=== PATIENT | female | born 1945 | race Caucasian/White ===

== ENCOUNTER 2019-06-28 13:48 | Inpatient (IN) | payer MEDICARE, OTHER ==
[~2019-06-28] VITALS: Ht 162.6 cm; Wt 81.1 kg
[2019-06-28] MEDS ORDERED: ZYRTEC10 MG PO (14:01)
[2019-06-28] MEDS ORDERED: LASIX80 MG PO (14:01)
[2019-06-28] MEDS ORDERED: CHLORTHALIDONE25 MG PO (14:01)
[2019-06-28] MEDS ORDERED: LANOXIN125 MCG PO (14:02)
[2019-06-28] MEDS ORDERED: ULTRAM50 MG PO (14:02)
[2019-06-28 14:48] LABS: BASOPHILS 0.1 % (0-2); EOSINOPHILS 0.1 % (0-7); HEMATOCRIT 47.5 % (36.0-48.0); HEMOGLOBIN 15.8 g/dL (12-16); IMMATURE GRANULOCYTES 0.3 % (0-5); LYMPHOCYTES 8.3 % (15-50); MCH 28.4 pg (26.0-34.0); MCHC 33.3 g/dL (31.0-37.0); MCV 85.3 fL (80.0-100.0); MEAN PLATELET VOLUME 10.7 fL (7.4-10.4); MONOCYTES 6.9 % (2-11); NEUTROPHILS 84.3 % (40-80); PLATELET COUNT 300 10x3/uL (130-400); RBC 5.57 10x6/uL (4.00-5.40); RDW 15.6 % (11.5-14.5); WBC 13.6 10x3/uL (4.8-10.8)
[2019-06-28 15:00] LABS: APTT 31.4 SECONDS (22.8-39.4); INR 1.12 (0.85-1.17); PROTIME 14.4 SECONDS (11.6-15.0)
[2019-06-28 15:24] LABS: ALBUMIN 3.2 g/dL (3.4-5.0); ALKALINE PHOSPHATASE 87 U/L (30-120); ALT (SGPT) 16 U/L (10-68); BILIRUBIN - TOTAL 0.51 mg/dL (0.2-1.3); CALC OSMOLALITY 298 mosm/kg (275-300); CALCIUM 9.5 mg/dL (8.5-10.1); CARBON DIOXIDE 26.9 mmol/L (21.0-32.0); CHLORIDE - SERUM 95 mmol/L (98-107); CKMB 2.1 U/L (0.0-3.6); CREATINE KINASE 131 UL (21-215); CREATININE - SERUM 4.1 mg/dL (0.6-1.3); GLUCOSE 119 mg/dL (74-106); PROTEIN - SERUM 7.6 g/dL (6.4-8.2); SODIUM 135 mmol/L (136-145); UREA NITROGEN 92 mg/dL (7-18); eGFR NON AFRICAN AMERICAN 11 mL/min (90-120)
[2019-06-28 15:38] LABS: TROPONIN-I 0.111 ng/mL (0.000-0.060)
[2019-06-28 15:39] LABS: POTASSIUM - SERUM 2.6 mmol/L (3.5-5.1)
[2019-06-28 15:49] LABS: BILIRUBIN NEGATIVE (NEGATIVE); GLUCOSE NEGATIVE (NEGATIVE); KETONE NEGATIVE (NEGATIVE); NITRITE NEGATIVE (NEGATIVE); UROBILINOGEN NORMAL (NORMAL)
[2019-06-28 15:52] LABS: BACTERIA MANY /hpf (NEGATIVE); EPITHELIAL CELLS 0-5 /hpf (0-5); RED CELLS - URINE 0-5 /hpf (0-5)
--- NOTE | 2019-06-28 16:37 | NUR ---
spoke with patient daughter and provided an updated her on pt status.
--- NOTE | 2019-06-28 17:52 | NUR ---
BLADDER SCAN 53CC.
[2019-06-28 18:07] VITALS: BP 150/76; BMI 28.4
--- NOTE | 2019-06-28 18:23 | NUR ---
B/P LYING 147/70, SITTING 108/54, UNABLE TO GET STANDING.
[2019-06-28 18:25] VITALS: BP 108/54; BP 147/70
--- NOTE | 2019-06-28 20:00 | NUR ---
LAYING- 151/87 HR 71, SITTING 110/75, HR 76 STANDING 107/82, HR 66
[2019-06-28 20:20] LABS: DIGOXIN 1.08 ng/mL (0.90-2.00); MAGNESIUM - SERUM 2.2 mg/dL (1.8-2.4)
[2019-06-28 21:12] VITALS: BP 151/87
[2019-06-28 23:58] VITALS: BP 158/94
[2019-06-29 05:17] VITALS: BP 140/80
[2019-06-29 06:04] LABS: BASOPHILS 0.2 % (0-2); EOSINOPHILS 1.8 % (0-7); HEMATOCRIT 46.6 % (36.0-48.0); HEMOGLOBIN 15.4 g/dL (12-16); IMMATURE GRANULOCYTES 0.4 % (0-5); LYMPHOCYTES 14.7 % (15-50); MCH 28.2 pg (26.0-34.0); MCV 85.3 fL (80.0-100.0); MEAN PLATELET VOLUME 10.6 fL (7.4-10.4); MONOCYTES 8.1 % (2-11); NEUTROPHILS 74.8 % (40-80); PLATELET COUNT 274 10x3/uL (130-400); RBC 5.46 10x6/uL (4.00-5.40); RDW 15.8 % (11.5-14.5)
[2019-06-29 06:20] LABS: WBC 8.9 10x3/uL (4.8-10.8)
[2019-06-29 07:04] LABS: ALBUMIN 3.1 g/dL (3.4-5.0); ANION GAP 15.8 mmol/L (8-16); BILIRUBIN - TOTAL 0.49 mg/dL (0.2-1.3); CALCIUM 9.3 mg/dL (8.5-10.1); CARBON DIOXIDE 27.2 mmol/L (21.0-32.0); CREATININE - SERUM 3.5 mg/dL (0.6-1.3); MAGNESIUM - SERUM 2.2 mg/dL (1.8-2.4); PROTEIN - SERUM 6.6 g/dL (6.4-8.2)
[2019-06-29 09:27] VITALS: BP 151/86
--- NOTE | 2019-06-29 10:22 | NUR ---
ORTHOSTATIC B/P: LYING 151/86, SITTING 114/74, STANDING 95/41.
[2019-06-29 10:24] VITALS: BP 114/74; BP 151/86; BP 95/41
--- NOTE | 2019-06-29 12:06 | NUR ---
ECHO COMPLETED AT BS.
[2019-06-29 12:18] VITALS: Ht 162.6 cm; Wt 81.1 kg
[2019-06-29 13:40] VITALS: BP 151/86
[2019-06-29 17:45] VITALS: BP 141/69
[2019-06-29 20:00] VITALS: BP 106/73
--- NOTE | 2019-06-30 00:18 | NUR ---
RESTING WITH EYES CLOSED, RESPERATIONS EVEN, NO S/S DISTRESS NOTED.
[2019-06-30 00:30] VITALS: BP 141/72
[2019-06-30 04:30] VITALS: BP 169/85
--- NOTE | 2019-06-30 06:05 | NUR ---
I have reviewed this patient and I concur with the Shift Assessment completed by the Licensed Practical Nurse today this shift.
[2019-06-30 06:41] LABS: BASOPHILS 0.3 % (0-2); EOSINOPHILS 3.6 % (0-7); HEMATOCRIT 42.1 % (36.0-48.0); HEMOGLOBIN 13.8 g/dL (12-16); IMMATURE GRANULOCYTES 0.4 % (0-5); LYMPHOCYTES 22.6 % (15-50); MCH 28.2 pg (26.0-34.0); MCHC 32.8 g/dL (31.0-37.0); MCV 85.9 fL (80.0-100.0); MEAN PLATELET VOLUME 10.3 fL (7.4-10.4); MONOCYTES 8.2 % (2-11); NEUTROPHILS 64.9 % (40-80); PLATELET COUNT 244 10x3/uL (130-400); RDW 15.9 % (11.5-14.5)
[2019-06-30 06:58] LABS: ANION GAP 15.2 mmol/L (8-16); CALCIUM 8.8 mg/dL (8.5-10.1); CARBON DIOXIDE 25.3 mmol/L (21.0-32.0); CREATININE - SERUM 3.1 mg/dL (0.6-1.3); POTASSIUM - SERUM 3.5 mmol/L (3.5-5.1)
[2019-06-30 08:50] VITALS: BP 157/93
[2019-06-30] MEDS ORDERED: LEVEMIR IN100 UNITS/ SQ (10:51)
[2019-06-30] MEDS ORDERED: HUMALOG 30100 UNITS/ SQ (10:52)
[2019-06-30 13:04] LABS: C-REACTIVE PROTEIN 3.5 mg/dL (0.0-0.9)
[2019-06-30 13:14] LABS: POTASSIUM - SERUM 4.1 mmol/L (3.5-5.1)
[2019-06-30 13:58] LABS: ERYTHROCYTE SEDIMENTATION RATE 42 mm/hr (0-30)
[2019-06-30 14:11] VITALS: BP 143/79
[2019-06-30 18:05] VITALS: BP 130/70
[2019-06-30 20:00] VITALS: BP 106/59; BP 132/76; BP 82/39
[2019-07-01] VITALS (7 sets, daily range): BP systolic 124–164; BP diastolic 53–84
[2019-07-01 06:28] LABS: BASOPHILS 0.1 % (0-2); EOSINOPHILS 3.9 % (0-7); HEMATOCRIT 40.9 % (36.0-48.0); HEMOGLOBIN 13.2 g/dL (12-16); IMMATURE GRANULOCYTES 0.4 % (0-5); LYMPHOCYTES 21.9 % (15-50); MCH 28.1 pg (26.0-34.0); MCHC 32.3 g/dL (31.0-37.0); MCV 87.2 fL (80.0-100.0); MEAN PLATELET VOLUME 10.9 fL (7.4-10.4); NEUTROPHILS 65.7 % (40-80); PLATELET COUNT 257 10x3/uL (130-400); RBC 4.69 10x6/uL (4.00-5.40); WBC 7.3 10x3/uL (4.8-10.8)
[2019-07-01 06:50] LABS: ANION GAP 16.4 mmol/L (8-16); CALCIUM 8.8 mg/dL (8.5-10.1); CARBON DIOXIDE 24.6 mmol/L (21.0-32.0); CREATININE - SERUM 2.8 mg/dL (0.6-1.3)
--- NOTE | 2019-07-01 07:15 | NUR ---
RECEIVED PT IN BED EYES CLOSED RESP UNLABORED SKIN W/D COLOR WNL NAD NOTED
[2019-07-01 09:08] LABS: ANA REFLEX - DIRECT Negative (Negative)
--- NOTE | 2019-07-01 17:12 | MORECARE ---
CASE MANAGEMENT DISCHARGE SUMMARY PATIENT: HENRY TREVIZO UNIT: [id number] ADM DATE: 06/28/19 AGE: 74 : 45 SEX: F ROOM/BED: D.8921 AUTHOR: DANNI DIAZ PHYSICIAN: REFERRING PHYSICIAN: KRISTEN JONES DO DATE OF SERVICE: 07/01/19 Discharge Plan Patient Name: HENRY TREVIZO Facility: [facility]:[place] : 1945 Planned Disposition: Home Anticipated Discharge Date: Discharge Date: Expected LOS: Initial Reviewer: [email or web address] Initial Review Date: 07/01/2019 Generated: 07/01/19 6:11 pm Patient Name: HENRY TREVIZO Page [id number] at 1712 All edits/amendments must be made on the electronic document DICTATION DATE: 07/01/191711 SALES AND LEASING CONSULTANT: BART 07/01/191711 RPT#: [id number] DC DATE: STATUS: ADM IN [facility] [address] [place] [address] END OF REPORT
--- NOTE | 2019-07-01 17:19 | MORECARE ---
CASE MANAGEMENT DISCHARGE SUMMARY PATIENT: HENRY TREVIZO UNIT: [id number] ADM DATE: 06/28/19 AGE: 74 : 45 SEX: F ROOM/BED: D.8335 AUTHOR: EMILY,DOC PHYSICIAN: REFERRING PHYSICIAN: KRISTEN JONES DO DATE OF SERVICE: 07/01/19 Discharge Plan Patient Name: HENRY TREVIZO Facility: [facility]:[place] : 1945 Planned Disposition: Home Anticipated Discharge Date: Discharge Date: Expected LOS: Initial Reviewer: [email or web address] Initial Review Date: 07/01/2019 Generated: 07/01/19 6:18 pm Comments DCP- Discharge Planning Updated by [id number]: Torri Baxter on 07/01/19 4:[address] Patient Name: HENRY TREVIZO Admission Status: ER Accout number: [id number] Admission Date: 06-28-2019 : 1945 Admission Diagnosis:HYPOTENSION, UNSPECIFIED Attending: KRISTEN JONES Current LOS: 3 Anticipated DC Date: Planned Disposition: Home Primary Insurance: MEDICARE A & B DCP - Return home with spouse Discharge Planning Comments: CM met with patient to complete initial dc planning assessment. CM educated patient on the CM role and verbal consent given by patient to complete assessment. Patient lives at home with spouse. States she is independent with all ADL's and IADL's. At discharge patient plans to return and feels this is a safe discharge. CM discussed availability of home health, rehab services, and medical equipment. Patient denied known discharge needs at this time. CM will continue to follow and will assist as needed with dc plans/needs. Payable Representative: Torri Baxter DCPIA - Discharge Planning Initial Assessment Updated by [email or web address]: Torri Baxter on 07/01/19 5:12 pm * Is the patient Alert and Oriented? Yes * How many steps to enter\exit or inside your home? 0/0 * PCP Dr. Corinne Cameron * Pharmacy [facility] on [address] * Preadmission Environment Home with Family * ADLs Independent * Equipment Bedside Commode Cane Glucometer Shower Chair Walker * List name and contact numbers for known caregivers / representatives who currently or will assist patient after discharge: Henry Walker - DTR - [phone] * Verbal permission to speak to the caregivers and representatives has been obtained from the patient. Yes * Community resources currently utilized None * Additional services required to return to the preadmission environment? No * Can the patient safely return to the preadmission environment? Yes * Has this patient been hospitalized within the prior 30 days at any hospital? No Last DP export: 07/01/19 4:12 p Patient Name: HENRY TREVIZO Page [phone] at 1719 All edits/amendments must be made on the electronic document DICTATION DATE: 07/01/191717 SALES PERFORMANCE ANALYST: BART 07/01/191717 RPT#: [id number] DC DATE: STATUS: ADM IN [facility] [address] [place] [address] END OF REPORT
--- NOTE | 2019-07-01 19:45 | NUR ---
REPORT RECIEVED AND INITIAL ROUNDS COMPLETED. PT RESTING IN BED. ALERT AND ORIENTED. PACED ON TELEMETRY. NONLABORED RESPIRATIONS. CPOC.
--- NOTE | 2019-07-01 23:28 | NUR ---
BEDTIME MEDS GIVEN. FSBS 271, SLIDING SCALE + LANTUS GIVEN. 30 MINUTES AFTER TAKING INSULIN, PT CALLED NURSE TO ROOM TO SAY SHE FELT REALLY BAD AND FELT LIKE HER BLOOD SUGAR WAS "GETTING HIGH". FSBS 214 AT THIS TIME. WARM/DRY TO TOUCH. WILL MONITOR. CPOC.
[2019-07-02 01:30] VITALS: BP 149/83
[2019-07-02 04:43] VITALS: BP 151/85
[2019-07-02 05:56] LABS: BASOPHILS 0.3 % (0-2); HEMATOCRIT 40.6 % (36.0-48.0); HEMOGLOBIN 13.1 g/dL (12-16); IMMATURE GRANULOCYTES 0.4 % (0-5); LYMPHOCYTES 23.2 % (15-50); MCHC 32.3 g/dL (31.0-37.0); MCV 86.8 fL (80.0-100.0); MEAN PLATELET VOLUME 10.5 fL (7.4-10.4); MONOCYTES 7.1 % (2-11); PLATELET COUNT 241 10x3/uL (130-400); RBC 4.68 10x6/uL (4.00-5.40); WBC 7.6 10x3/uL (4.8-10.8)
[2019-07-02 06:11] LABS: CARBON DIOXIDE 22.9 mmol/L (21.0-32.0); CREATININE - SERUM 2.5 mg/dL (0.6-1.3); MAGNESIUM - SERUM 1.8 mg/dL (1.8-2.4); POTASSIUM - SERUM 3.9 mmol/L (3.5-5.1)
--- NOTE | 2019-07-02 07:15 | NUR ---
RECEIVED PT IN BED AAOX4 RESP UNLABORED SKIN W/D COLOR WNL RFA IV SITE NOTED WITHOUT REDNESS OR EDEMA DENIES ANY NEEDS OR DISCOMFORT AT THIS TIME
[2019-07-02 07:18] LABS: ERYTHROCYTE SEDIMENTATION RATE 43 mm/hr (0-30)
[2019-07-02 10:20] VITALS: BP 116/67
[2019-07-02] MEDS ORDERED: COREG6.25 MG PO (13:05)
[2019-07-02] MEDS ORDERED: ULORIC40 MG PO (13:06)
--- NOTE | 2019-07-02 15:13 | NUR ---
REVIEWED DISCHARGE INSTRUCTIONS WITH PT STATES UNDERSTANDING COPY GIVEN DCD SALINE LOCK TO LFA WITH IV CATHETER INTACT SITE FREE OF REDNESS OR EDEMA PT DISCHARGED HOME LEFT UNIT VIA W/C IN STABLE CONDITION WITH ALL PERSONAL BELONGINGS
== END 2019-07-02 15:13 | disposition home or self-care (01) | DRG 312 ==
LOC: D.ER 13:48 → D.M2 14:49
PROVIDERS: Family Medicine; Internal Medicine Nephrology; ADMIT Family Medicine; ATTEND Family Medicine
DX: I95.1 Orthostatic hypotension (principal); N39.0 Urinary tract infection, site not specified; N17.9 Acute kidney failure, unspecified; I42.9 Cardiomyopathy, unspecified; I13.0 Hypertensive heart and chronic kidney disease with heart failure and stage 1 through stage 4 chronic kidney disease, or unspecified chronic kidney disease; N18.4 Chronic kidney disease, stage 4 (severe); Z91.81 History of falling; E11.22 Type 2 diabetes mellitus with diabetic chronic kidney disease; I50.9 Heart failure, unspecified; E11.65 Type 2 diabetes mellitus with hyperglycemia; E87.6 Hypokalemia; S00.11XA Contusion of right eyelid and periocular area, initial encounter; W19.XXXA Unspecified fall, initial encounter; S80.211A Abrasion, right knee, initial encounter; I48.0 Paroxysmal atrial fibrillation; R13.10 Dysphagia, unspecified; I08.1 Rheumatic disorders of both mitral and tricuspid valves; M19.041 Primary osteoarthritis, right hand; B95.2 Enterococcus as the cause of diseases classified elsewhere; S60.041A Contusion of right ring finger without damage to nail, initial encounter

== ENCOUNTER 2019-12-29 18:16 | Emergency (ER) | payer MEDICARE, OTHER ==
[~2019-12-29] VITALS: Ht 162.6 cm; Wt 79.5 kg
[~2019-12-29 18:16] MED LIST: CHLORTHALIDONE25 MG PO; COREG6.25 MG PO; HUMALOG 30100 UNITS/ SQ; LANOXIN125 MCG PO; LASIX80 MG PO; LEVEMIR IN100 UNITS/ SQ; ULORIC40 MG PO; ULTRAM50 MG PO; ZYRTEC10 MG PO
[2019-12-29 18:46] VITALS: Ht 162.6 cm; Wt 79.5 kg
[2019-12-29 19:29] LABS: BASOPHILS 0.2 % (0-2); EOSINOPHILS 2.8 % (0-7); HEMATOCRIT 38.3 % (36.0-48.0); HEMOGLOBIN 12.7 g/dL (12-16); IMMATURE GRANULOCYTES 0.2 % (0-5); LYMPHOCYTES 14.1 % (15-50); MCH 31.1 pg (26.0-34.0); MCHC 33.2 g/dL (31.0-37.0); MCV 93.9 fL (80.0-100.0); MEAN PLATELET VOLUME 10.7 fL (7.4-10.4); NEUTROPHILS 75.7 % (40-80); RBC 4.08 10x6/uL (4.00-5.40); RDW 14.3 % (11.5-14.5); WBC 8.9 10x3/uL (4.8-10.8)
[2019-12-29 19:38] LABS: PLATELET COUNT 171 10x3/uL (130-400)
[2019-12-29 19:43] LABS: CALCIUM 9.4 mg/dL (8.5-10.1); CARBON DIOXIDE 22.2 mmol/L (21.0-32.0); CREATININE - SERUM 3.2 mg/dL (0.6-1.3); POTASSIUM - SERUM 5.2 mmol/L (3.5-5.1)
[2019-12-29 19:47] LABS: ALBUMIN 3.3 g/dL (3.4-5.0); BILIRUBIN - TOTAL 0.31 mg/dL (0.2-1.3); PROTEIN - SERUM 7.3 g/dL (6.4-8.2)
[2019-12-29 20:52] VITALS: BP 144/73
[2019-12-30] MEDS ORDERED: FLOMAX0.4 MG PO (09:09)
[2019-12-30] MEDS ORDERED: VELTASSA8.4 GM PO (10:51)
== END 2019-12-29 20:52 | disposition home or self-care (01) ==
LOC: D.ER 18:16
PROVIDERS: Emergency Medicine
DX: K59.00 Constipation, unspecified (principal); I50.9 Heart failure, unspecified; I48.91 Unspecified atrial fibrillation

== ENCOUNTER 2019-12-30 08:31 | Emergency (ER) | payer MEDICARE, OTHER ==
[~2019-12-30] VITALS: Ht 162.6 cm; Wt 81.8 kg
[2019-12-30 08:38] VITALS: BP 152/85; Ht 162.6 cm; Wt 81.8 kg
[2019-12-30] MEDS ORDERED: FLOMAX0.4 MG PO (09:09)
[2019-12-30 09:44] LABS: ANION GAP 18.4 mmol/L (8-16); CALCIUM 9.7 mg/dL (8.5-10.1); CARBON DIOXIDE 21.1 mmol/L (21.0-32.0); POTASSIUM - SERUM 5.5 mmol/L (3.5-5.1)
[2019-12-30 09:50] LABS: ALBUMIN 3.2 g/dL (3.4-5.0); BILIRUBIN - TOTAL 0.53 mg/dL (0.2-1.3); PROTEIN - SERUM 7.1 g/dL (6.4-8.2)
[2019-12-30 10:00] LABS: BILIRUBIN NEGATIVE (NEGATIVE); KETONE SMALL mg/dL (NEGATIVE); NITRITE NEGATIVE (NEGATIVE); UROBILINOGEN NORMAL mg/dL (< 2)
[2019-12-30 10:01] LABS: BACTERIA FEW HPF (NONE SEEN); EPITHELIAL CELLS RARE /hpf (0-5); WHITE CELLS - URINE RARE HPF (0-4)
[2019-12-30 10:02] LABS: AMORPHOUS SEDIMENT <1+ LPF (NONE SEEN)
[2019-12-30 10:26] LABS: DIGOXIN 0.58 ng/mL (0.90-2.00); MAGNESIUM - SERUM 1.9 mg/dL (1.8-2.4); THYROID STIMULATING HORMONE 1.11 uIU/mL (0.36-3.74)
[2019-12-30] MEDS ORDERED: VELTASSA8.4 GM PO (10:51)
== END 2019-12-30 12:01 | disposition home or self-care (01) ==
LOC: D.ER 08:31
PROVIDERS: Emergency Medicine
DX: R33.9 Retention of urine, unspecified (principal); K59.00 Constipation, unspecified; E87.5 Hyperkalemia; E11.22 Type 2 diabetes mellitus with diabetic chronic kidney disease; N18.9 Chronic kidney disease, unspecified; Z79.4 Long term (current) use of insulin

== ENCOUNTER 2020-08-08 16:50 | Inpatient (IN) | payer OTHER ==
[~2020-08-08] VITALS: Ht 162.6 cm; Wt 83.9 kg
--- NOTE | 2020-08-08 09:15 | NUR ---
RECEIVED PATIENT TO ROOM VIA STRETCHER AND EMS, PATIENT IS NON VERBAL BUT DOES MOAN, LEFT ARM SWOLLEN, IN CREASE OF AC IS A VASELINE DRESSING, RIGHT ARM IN CAST, LEFT EYE SWOLLEN AND BRUISED, CATHETER IN PLACE, IV TO LEFT SHOULDER SL APTIENT IS ON RA, ASSUME PATIENT CARE, CALLED [facility] TO REPORT PATIENT HAS ARRIVED, CL IN REACH
[~2020-08-08 16:50] MED LIST changes: +FLOMAX0.4 MG PO; +LISINOPRIL2.5 MG PO; +NEURONTIN 300300 MG; +VELTASSA8.4 GM PO
[2020-08-08 21:48] VITALS: BMI 30.5
--- NOTE | 2020-08-09 01:14 | NUR ---
PLACED 2L NC ON PATIENT PER ORDERS, PATIENT BECAME AGITATED ATTEMPTING TO TAKE NC OUT, SOTTHINGLY CALMED PATIENT DOWN EXPLAINING IT IS HER OXYGEN TO HELP HER BREATHE, HELD PATIENT HAND UNTIL SHE RELAXED AND LEFT NC ALONE. CONTINUE WITH PLAN OF CARE. ON RT SHOULDER PATIENT HAS LIDOCAINE PATCH AND ON TOP OF PATCH IS FENTANYL PATCH.
--- NOTE | 2020-08-09 01:36 | NUR ---
PATIENT LEFT ARM WEEPING, LIFTED ARM TO PLACE PAD UNDR AND PATIENT YELLED OUT " STOP IT HURTS" EXPLAINED I AM PLACING PAD UNDER ARM PATIENT AGAIN STATED IT HURTS, ADMINISTER PRN PAIN MEDICATION, CONTINUE WITH PLAN OF CARE
--- NOTE | 2020-08-09 06:13 | NUR ---
PATIENT RESTING COMFORTABLY, NO SIGNS OF DISTRESS, EVEN RISE AND FALL OF CHEST. CL IN REACH. CONTINUE WITH PLAN OF CARE
--- NOTE | 2020-08-09 07:43 | NUR ---
PATIENT REFUSED TO WEAR O2 STATES SHE DOES NOT NEED IT AND THAT SHE WILL TELL DR THAT WHEN HE COMES IN, GAVE PATIENT COLD WATER TO DRINK. NO OTHER NEEDS VOICED AT THIS TIME 1000 OUT OF BROOKE BAG
--- NOTE | 2020-08-09 09:00 | NUR ---
ASSESSMENT PER FLOW SHEET. PATIENT IS WITHOUT DISTRESS.CALL LIGHT IN REACH. FAMILY AT BEDSIDE.
[2020-08-09 09:16] VITALS: Ht 162.6 cm; Wt 83.9 kg
[2020-08-09 11:00] VITALS: BP 123/65
[2020-08-09 20:00] VITALS: BP 106/31
--- NOTE | 2020-08-10 07:46 | NUR ---
PATIENT IS YELLING OUT AND GRIMACING.MEDS ORDERED FOR PAIN AND ANXIETY.ASSESSMENT PER FLOW SHEET.BED ALARM ON AND DOOR OPEN TO MONITOR.
[2020-08-10 08:00] VITALS: BP 154/66
[2020-08-10 11:37] VITALS: BP 143/39
[2020-08-10 14:40] VITALS: BP 143/32
[2020-08-10 21:43] VITALS: BP 127/42
--- NOTE | 2020-08-11 03:14 | NUR ---
I have reviewed this patient and I concur with the Shift Assessment completed by the Licensed Practical Nurse today this shift.
--- NOTE | 2020-08-11 08:00 | NUR ---
PATIENT IN BED WITH IV INTACT. EYES CLOSED RESTING QUIETLY. NO SIGNS OF DISTRESS OR PAIN. WILL CONTINUE TO MONITOR.
--- NOTE | 2020-08-11 08:45 | NUR ---
TRIED TO ASSIST IN TURNING AND MOVING PATIENT. PATIENT COMBATIVE AND YELLING NO. LEFT PATIENT ALONE AT THIS TIME. WILL REPOSITION LATER.
[2020-08-11 10:28] VITALS: BP 151/75
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
--- NOTE | 2020-08-11 12:15 | NUR ---
SPOKE WITH PATIENTS DAUGHTER. PATIENT IN BED RESTING COMFORTABLY AT THIS TIME. NO COMPLAINTS OR SIGNS OF DISTRESS. CALL LIGHT WITHIN REACH.
--- NOTE | 2020-08-11 14:25 | NUR ---
PATIENT IN BED WITH IV ANDD BROOKE INTACT. EYES CLOSED RESTING. NO SIGNS OF DISTRESS. CALL LIGHT WITHIN REACH.
--- NOTE | 2020-08-11 16:20 | NUR ---
PATIENT IN BED WITH EYES CLOSED RESTING QUIETLY. ASKED PATIENT IF SHE WAS HURTING. PATIENT OPENED HER EYES AND STATED NO. WILL CONTINUE TO MONITOR. CALL LIGHT WITHIN REACH.
--- NOTE | 2020-08-11 19:22 | NUR ---
BEDSIDE REPORT GIVEN TO WILLY MORE AT THIS TIME. IV INTACT. BROOKE INTACT. EXPLAINED THAT PATIENT IS REFUSING TO BE REPOSITIONED, AND THAT SHE BECOMES COMBATIVE EVERY TIME WE HAVE TRIED. EMPTIED PATIENTS BROOKE AT THIS TIME. NO SIGNS OF DISTRESS OR PAIN. CALL LIGHT WITHIN REACH.
[2020-08-11 21:03] VITALS: BP 111/40
--- NOTE | 2020-08-12 02:50 | NUR ---
I have reviewed this patient and I concur with the Shift Assessment completed by the Licensed Practical Nurse today this shift.
--- NOTE | 2020-08-12 07:30 | NUR ---
PATIENT IN BED WITH IV INTACT. PATIENT MOANING AND SAYS SHE IS IN PAIN. SHE IS AGITATED AND NOT WANTING ME TO TOUCH HER AT ALL. GAVE PATIENT A SIP OF WATER. SWALLOWED WITH NO PROBLEM. CLEANED MOUTH OUT WITH BIOTENE. BROOKE CARE COMPLETED. PATIENT UPSET AND DIDNT WANT IT DONE. EXPLAINED TO PATIENT THAT I HAVE TO CLEAN TO TRY TO KEEP FROM GETTING INFECTION. PATIENT RECIEVED MORPHINE FOR PAIN AND ATIVAN FOR AGITATION. TRIED TO REPOSITION PATIENT A SMALL AMOUNT. STILL SCREAMING NOT TO TOUCH HER AT THIS TIME. WILL CONTINUE TO MONITOR. CALL LIGHT WITHIN REACH.
[2020-08-12 09:56] VITALS: BP 152/36
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
--- NOTE | 2020-08-12 18:32 | NUR ---
GAVE ATIVAN TO PATIENT IVP DUE TO AGITATION. CHANGED PATIENTS GOWN AND CLEANED PATIENT UP WITH BODY WIPES. UNABLE TO TURN PATIENT TO GET TO BACK AND BUTTOCKS. PATIENT IV LEAKING IN RUE. REMOVED WITH CATH TIP INTACT. RESTARTED 22G TO RIGHT ARM ABOVE SPLINT X 1 STICK. PATIENT TOLERATED WITH SMALL AMOUNT OF PAIN. PATIENT NOW RESTING QUIETLY. CALL LIGHT WITHIN REACH.
[2020-08-12 20:00] VITALS: BP 142/75
--- NOTE | 2020-08-13 01:22 | NUR ---
PAIN AND ANXIETY HAS BEEN MANAGED WITH THE PRESCRIBED PAIN AND ANXIETY MEDICATIONS. SHE IS CURRENTLY RESTING IN BED WITH HER EYES CLOSED.
--- NOTE | 2020-08-13 07:15 | NUR ---
REC'D IN BED WITH EYES CLOSED AROUSED EASILY WHEN NAME IS CALLED. RESP EVEN AND UNLABORED WITH NO DISTRESS NOTED. CAN EXPRESS SOME NEEDS AND WANTS. NO C/O NOTED OR VOICED. ASSESSMENT COMPLETED. C/L IN REACH AT BEDSIDE.
[2020-08-13 10:02] VITALS: BP 147/37
--- NOTE | 2020-08-13 11:04 | NUR ---
I have reviewed this patient and I concur with the Shift Assessment completed by the Licensed Practical Nurse today this shift.
--- NOTE | 2020-08-13 14:16 | NUR ---
THIS NURSE WAS INFORMED OF PT FAMILY WANTING TO HAVE SPLIT REMOVED FROM PT RIGHT ARM SHE'S ONE WEEK POST-OP OF AND ORIF OF THAT WRIST. [facility] WAS CALLED AWAITING RESPONSE. FAMILY AND C/L IN REACH AT BEDSIDE.
--- NOTE | 2020-08-13 14:20 | NUR ---
CALL WAS PLACED TO [facility] AWAITING RESPONSE. DAUGHTER AND C/L AT BESIDE.
--- NOTE | 2020-08-13 16:32 | NUR ---
PATIENT RUBIO WRAP REMOVED PER ORDER, NO RONNY, CLEANED SITE AND REWRAPPED WITH KERLEX. PATIENT TOLERATED WELL, DAUGHTER AT BEDSIDE.. CONTINUE WITH PLAN OF CARE
[2020-08-13 16:52] VITALS: BP 142/101
[2020-08-13 19:47] VITALS: BP 148/59
--- NOTE | 2020-08-14 02:33 | NUR ---
PAIN AND ANXIETY WERE MANAGED WITH THE PRESCRIBED MEDICATIONS, SHE IS CURRENTLY RESTING IN BED WITH HER EYES CLOSED.
--- NOTE | 2020-08-14 11:12 | NUR ---
PATIENT DRESSINGS CHANGED AT THIS TIME TO LEFT ARM. PATIENT TOLERATED WITH SMALL AMOUNT OF PAIN. PREMEDICATED WITH MORPHINE AND ATIVAN. HAD TO RESTART IV DUE TO LEAKING. OLD IV REMOVED WITH CATH TIP INTACT. 22G STARTED IN R FA X1 STICK. WILL CONTINUE TO MONITOR. CALL LIGHT WITHIN REACH.
[2020-08-14 11:59] VITALS: BP 165/54
[2020-08-14 17:04] VITALS: BP 147/58
--- NOTE | 2020-08-14 18:28 | NUR ---
NEW ORDERS FOR VARNISHING UNIT OPERATOR AND DULCOLAX SUPPOSITORY PER /MIGDALIA MANAGER INTEGRATION AT THIS TIME. ALSO ORDERED TO DC PO MEDS. PATIENT IN BED WITH EYES CLOSED RESTING. CALL LIGHT WITHIN REACH.
--- NOTE | 2020-08-14 18:50 | NUR ---
TABLEMAN STARTED BY TERENCE DELACRUZ AT THIS TIME PER DR. VELÁZQUEZ ORDERS.
[2020-08-14 20:00] VITALS: BP 178/46
--- NOTE | 2020-08-14 20:00 | NUR ---
PT LYING IN BED RESTING WITHOUT DISTRESS AFTER MORPHINE PHARMACIST'S AIDE INITATED. CL IN REACH, BED ALARM ON. WILL CONTINUE PLAN OF CARE
--- NOTE | 2020-08-15 07:54 | NUR ---
0700 BEDSIDE REPORT RECEIVED FROM NIGHT RN
--- NOTE | 2020-08-15 07:55 | NUR ---
0715 DAUGHTER, HENRY AT BEDSIDE EMOTION SUPPORT PROVIDED ALLOWED HER TO EXPRSS HER CONCERNS OBTAINED EXTENIION NUMBER SHE IS STAFF AT [facility]
[2020-08-15 08:16] VITALS: BP 115/29
--- NOTE | 2020-08-15 12:11 | MORECARE ---
CASE MANAGEMENT DISCHARGE SUMMARY PATIENT: HENRY TREVIZO UNIT: [id number] ADM DATE: 08/08/20 AGE: 75 : 45 SEX: F ROOM/BED: D220 AUTHOR: DANNI DIAZ PHYSICIAN: REFERRING PHYSICIAN: MAXWELL VELÁZQUEZ MD DATE OF SERVICE: 08/15/20 Case Management Discharge Planning Summary DCP REVIEW SUMMARY ANTICIPATED D/C DATE: EXPECTED LOS : CASE STATUS: DCP Initiated INITIAL REVIEW: 08/08/2020 INITIAL REVIEWER: Rosa Aquino FINAL DISCHARGE DISPOSITION: : FINAL REVIEWER: FINAL REVIEW DATE: DCP [employer] Questions & Answers QUESTION: ANSWER : PATIENT: HENRY TREVIZO ENCOUNTER: [id number] MEDICAL RECORD#: [id number] ADMISSION DATE: 08/08/2020 DISCHARGE DATE: ATTENDING MD: MAXWELL CANO : AGE: 75 MARITAL STATUS: M DC PLAN ID: [id number] FACILITY: [facility] PRINTED ON: 08/15/20 12:10 CT All edits/amendments must be made on the electronic document DICTATION DATE: 08/15/20 121 FORMING TUBE SELECTOR: DM 08/15/20 1210 RPT#: [id number] DC DATE: STATUS: ADM IN [facility] [address] [place] [address] END OF REPORT
[2020-08-15 20:00] VITALS: BP 112/56
[2020-08-16 09:52] VITALS: BP 127/59
[2020-08-16 20:12] VITALS: BP 107/44
--- NOTE | 2020-08-17 07:05 | NUR ---
VETERINARY LABORATORY TECHNICIAN CALLED FOR RN TO PT ROOM, UPON ARRIVAL FOUND PT NOT BREATHING, NO PULSE, AND NO HEART TONES. PT RELEASED TWO EXPIRATORY BREATHES, STILL NO PULSE OR HEART TONES. 0715 CM NOTIFIED, PT DAUGHTER NOTIFIED, IV STOPPED, PT FACE CLEANED UP, PT COVERED AND PRESENTABLE
--- NOTE | 2020-08-17 07:40 | NUR ---
[facility] NURSE CALLED BACK AND LET US KNOW ONE OF THE DAY RN'S WOULD BE IN SHORTLY TO PRONOUNCE PT AND NOTIFY PHYSICIAN
--- NOTE | 2020-08-17 07:53 | MORECARE ---
CASE MANAGEMENT DISCHARGE SUMMARY PATIENT: HENRY TREVIZO UNIT: [id number] ADM DATE: 08/08/20 AGE: 75 : 45 SEX: F ROOM/BED: [facility] AUTHOR: EMILY,DOC PHYSICIAN: REFERRING PHYSICIAN: MAXWELL VELÁZQUEZ MD DATE OF SERVICE: 08/17/20 Case Management Discharge Planning Summary DCP REVIEW SUMMARY ANTICIPATED D/C DATE: EXPECTED LOS : CASE STATUS: DCP Complete INITIAL REVIEW: 08/08/2020 INITIAL REVIEWER: Rosa Aquino FINAL DISCHARGE DISPOSITION: 20 : FINAL REVIEWER: Rosa Aquino FINAL REVIEW DATE: 08/17/2020 DCP [employer] Questions & Answers QUESTION: ANSWER : PATIENT: HENRY TREVIZO ENCOUNTER: [id number] MEDICAL RECORD#: [id number] ADMISSION DATE: 08/08/2020 DISCHARGE DATE: ATTENDING MD: MAXWELL CANO : AGE: 75 MARITAL STATUS: M DC PLAN ID: [id number] FACILITY: [facility] PRINTED ON: 08/17/20 7:53 CT All edits/amendments must be made on the electronic document DICTATION DATE: 08/17/20752 TEMPERATURE LOGGING OPERATOR: BART 08/17/20752 RPT#: [id number] DC DATE: STATUS: ADM IN [facility] [address] [place] [address] END OF REPORT
--- NOTE | 2020-08-17 08:04 | MORECARE ---
CASE MANAGEMENT DISCHARGE SUMMARY PATIENT: HENRY TREVIZO UNIT: [id number] ADM DATE: 08/08/20 AGE: 75 : 45 SEX: F ROOM/BED: [facility] AUTHOR: EMILY,DOC PHYSICIAN: REFERRING PHYSICIAN: MAXWELL VELÁZQUEZ MD DATE OF SERVICE: 08/17/20 Case Management Discharge Planning Summary DCP REVIEW SUMMARY ANTICIPATED D/C DATE: EXPECTED LOS : 0 CASE STATUS: DCP Complete INITIAL REVIEW: 08/08/2020 INITIAL REVIEWER: Rosa Aquino FINAL DISCHARGE DISPOSITION: 20 : FINAL REVIEWER: Rosa Aquino FINAL REVIEW DATE: 08/17/2020 DCP [employer] Questions & Answers QUESTION: ANSWER : PATIENT: HENRY TRVEIZO ENCOUNTER: [id number] MEDICAL RECORD#: [id number] ADMISSION DATE: 08/08/2020 DISCHARGE DATE: ATTENDING MD: MAXWELL CANO : AGE: 75 MARITAL STATUS: M DC PLAN ID: [id number] FACILITY: [facility] PRINTED ON: 08/17/20 8:03 CT All edits/amendments must be made on the electronic document DICTATION DATE: 08/17/20802 ACCOUNTS PAYABLE PROFESSIONAL: DM 08/17/20802 RPT#: [id number] DC DATE: STATUS: ADM IN [facility] [address] [place] [address] END OF REPORT
--- NOTE | 2020-08-17 11:19 | NUR ---
PT LEFT VIA STRETCHER WITH A NATURAL STATE FIT HOME
[2020-08-17 12:53] VITALS: BP 133/79
--- NOTE | 2020-08-17 13:21 | MORECARE ---
CASE MANAGEMENT DISCHARGE SUMMARY PATIENT: HENRY TREVIZO UNIT: [id number] ADM DATE: 08/08/20 AGE: 75 : 45 SEX: F ROOM/BED: [facility] AUTHOR: EMILY,DOC PHYSICIAN: REFERRING PHYSICIAN: MAXWELL VELÁZQUEZ MD DATE OF SERVICE: 08/17/20 Case Management Discharge Planning Summary DCP REVIEW SUMMARY ANTICIPATED D/C DATE: EXPECTED LOS : 0 CASE STATUS: DCP Complete INITIAL REVIEW: 08/08/2020 INITIAL REVIEWER: Rosa Aquino FINAL DISCHARGE DISPOSITION: 20 : FINAL REVIEWER: Rosa Aquino FINAL REVIEW DATE: 08/17/2020 DCP [employer] Questions & Answers QUESTION: ANSWER : PATIENT: HENRY TREVIZO ENCOUNTER: [id number] MEDICAL RECORD#: [id number] ADMISSION DATE: 08/08/2020 DISCHARGE DATE: 08/17/2020 ATTENDING MD: MAXWELL CANO : AGE: 75 MARITAL STATUS: M DC PLAN ID: [id number] FACILITY: [facility] PRINTED ON: 08/17/20 13:21 CT All edits/amendments must be made on the electronic document DICTATION DATE: 08/17/20 [address] MARSHAL: BART 08/17/20 1321 RPT#: [id number] DC DATE:08/17/20 STATUS: DIS IN [facility] [address] [place] [address] END OF REPORT
== END 2020-08-17 11:19 | DRG 951 ==
LOC: D.MS 16:50
PROVIDERS: ADMIT Family Medicine; ATTEND Family Medicine
DX: Z51.5 Encounter for palliative care (principal)